=== PATIENT | male | born 1990 | race Caucasian/White ===

== ENCOUNTER → 2020-04-25 | Outpatient (CLI) | payer BC | LOC: LAB 04-24 13:57 | DX: J02.9 Acute pharyngitis, unspecified (principal); R06.02 Shortness of breath; Z20.828 Contact with and (suspected) exposure to other viral communicable diseases ==

== ENCOUNTER → 2020-09-03 | Outpatient (CLI) | payer BC | LOC: LAB 07:51 | DX: U07.1 COVID-19 (principal) ==

== ENCOUNTER → 2023-11-02 | Outpatient (CLI) | payer BC | LOC: RAD 15:54 | DX: M25.512 Pain in left shoulder (principal) ==

== ENCOUNTER → 2024-11-09 | Outpatient (CLI) | payer BC ==
[2024-11-09 12:16] LABS: HEMATOCRIT 43.5 % (42.0-52.0); HEMOGLOBIN 14.8 g/dL (13.5-18.0); MEAN PLATELET VOLUME 9.6 fl (7.4-10.4); RED BLOOD COUNT 4.73 M/mm3 (4.20-5.60); RED CELL DISTRIBUTION WIDTH 12.6 % (11.5-14.5); WHITE BLOOD COUNT 5.5 K/mm3 (4.8-10.8)
[2024-11-09 12:21] LABS: ALBUMIN 4.4 g/dL (3.5-5.0)
[2024-11-09 12:22] LABS: CALCIUM 9.6 mg/dL (8.3-10.5)
[2024-11-09 12:23] LABS: TOTAL PROTEIN 7.2 g/dL (6.4-8.3)
[2024-11-09 12:25] LABS: TOTAL BILIRUBIN 1.4 mg/dL (0.2-1.2)
== END ==
LOC: LAB 11:52
PROVIDERS: Family Medicine
DX: Z13.1 Encounter for screening for diabetes mellitus (principal); Z13.220 Encounter for screening for lipoid disorders; Z11.59 Encounter for screening for other viral diseases; M25.512 Pain in left shoulder; R03.0 Elevated blood-pressure reading, without diagnosis of hypertension